=== PATIENT | female | born 1965 | race Caucasian/White ===

== ENCOUNTER 2018-05-26 18:32 | Emergency (ER) | payer SELFPAY ==
[~2018-05-26] VITALS: Wt 85.0 kg
[2018-05-26] MEDS ORDERED: KETOROLAC 30 MG INJ IM STA (23:14)
[2018-05-26] MEDS ORDERED: ALBUTEROL 0.083% (NEB) 2.5 MG/3 ML AMP HHN STA (23:23)
[2018-05-26] MEDS ORDERED: DEXAMETHASONE 10 MG/ML 1 ML INJ IM ONE (23:30)
[2018-05-27] MEDS ORDERED: ONDANSETRON (ODT) 4 MG TAB ODT STA (00:43)
[2018-05-27] MEDS ORDERED: AZITHROMYCIN 250 MG TAB PO ONE (01:00)
[2018-05-27] MEDS ORDERED: AMOXICILLIN/CLAV 875 MG TAB PO ONE (01:00)
[2018-05-27] MEDS ORDERED: ALBU8.5H8 INH (01:36)
[2018-05-27] MEDS ORDERED: ONDA4TAB14 PO (01:36)
[2018-05-27] MEDS ORDERED: AMOX1TAB9 PO (01:36)
[2018-05-27] MEDS ORDERED: AZIT250T PO (01:36)
[2018-05-27] MEDS ORDERED: ACET500C5 PO (01:46)
[2018-05-27] MEDS ORDERED: IBUP800T48 PO (01:46)
[2018-05-27 01:55] VITALS: BP 122/69; PULSE 101; RESP 19
--- NOTE | 2018-05-27 20:45 | ERD ---
ER Documentation Chief Complaint Chief Complaint FEVER, CHILLS, SOB X'S 4 DAYS HPI 53 year-old [female] coming in today with Chief Complaint: Cold symptoms History of Present Illness: Daughter brings patient in today with complaint of cold symptoms for 4 days. Associated symptoms include fever, chills, shortness of breath, wheezing, fatigue; denies any other associated symptoms. Denies sick contacts. Denies at home use of medication for symptoms. Review of systems: All systems were reviewed and are negative except for what is indicated in the history of present illness. Past Medical History: [Negative for hypertension, diabetes or other medical problems] Social History: [Patient denies tobacco, alcohol, elicit drug use] Medications: [None] Allergies: [NKDA] Social Concerns: Denies ROS All systems reviewed and are negative except as per history of present illness. Medications Home Meds Active Scripts Ibuprofen* (Motrin*) 800 Mg Tab, 800 MG PO Q6H PRN for PAIN AND OR ELEVATED TEMP, #30 TAB Prov:WESLY CALL NP 05/27/18 Acetaminophen* (Tylophen*) 500 Mg Capsule, 2 CAP PO Q6 PRN for MILD PAIN(1-3)OR ELEVATED TEMP, #20 CAP Prov:WESLY CALL NP 05/27/18 Albuterol Sulfate* (Proair HFA*) 8.5 Gm Hfa.aer.ad, 2 PUFF INH Q4H PRN for WHEEZING AND SOB, #1 INHALER Prov:WESLY CALL NP 05/27/18 Ondansetron (Ondansetron Odt) 4 Mg Tab.rapdis, 4 MG PO Q6H PRN for NAUSEA AND/OR VOMITING, #10 TAB Prov:WESLY CALL NP 05/27/18 Amoxicillin/Potassium Clav (Amox-Clav 500-125 mg Tablet) 500-125 mg Tab, 1 TAB PO BID for 7 Days, TAB Prov:WESLY CALL NP 05/27/18 Azithromycin* (Zithromax*) 250 Mg Tablet, 250 MG PO DAILY for 4 Days, TAB Prov:WESLY CALL NP 05/27/18 Allergies Allergies: Coded Allergies: No Known Allergy (Unverified , 05/26/18) PMhx/Soc Medical and Surgical Hx: pt denies Medical Hx, pt denies Surgical Hx Hx Alcohol Use: No Hx Substance Use: No Hx Tobacco Use: No Smoking Status: Never smoker Physical Exam Vitals Vital Signs Date Temp Pulse Resp B/P (MAP) Pulse Ox O2 O2 Flow FiO2 Time Delivery Rate 05/27/18 99.7 101 19 122/69 97 Room Air 01:55 (86) 05/27/18 91 22 98 21 00:01 05/26/18 98.9 117 20 145/67 96 18:49 (93) Physical Exam Const: No acute distress Head: Atraumatic Eyes: Normal Conjunctiva ENT: Normal External Ears, Nose and Mouth. Neck: Full range of motion. No meningismus. Resp: Expiratory wheezing to all lobes bilaterally. Diminished right lung sounds. Cardio: Regular rhythm, no murmurs; tachycardia at 120 Abd: Soft, non distended. Normal bowel sounds. Positive suprapubic tenderness. Skin: No petechiae or rashes Back: No midline or flank tenderness Ext: No cyanosis, or edema Neur: Awake and alert Psych: Normal Mood and Affect Results 24 hrs Laboratory Tests Test 05/26/18 21:31 Urine Color CORNELIO Urine Clarity SLIGHTLY CLOUDY Urine pH 5.0 Urine Specific [place] 1.029 Urine Ketones NEGATIVE mg/dL Urine Nitrite NEGATIVE mg/dL Urine Bilirubin NEGATIVE mg/dL Urine Urobilinogen 1+ mg/dL Urine Leukocyte Esterase 2+ Eileen/ul Urine Microscopic RBC 9 /HPF Urine Microscopic WBC 19 /HPF Urine Squamous Epithelial Cells FEW /HPF Urine Amorphous Crystals MANY /HPF Urine Bacteria FEW /HPF Urine Mucus MANY /HPF Urine Hemoglobin 1+ mg/dL Urine Glucose NEGATIVE mg/dL Urine Total Protein 2+ mg/dl Urine Test NEGATIVE Current Medications Medications Dose Sig/Jamar Start Time Status Last (Trade) Ordered Route PRN Stop Time Admin Dose Reason Admin Ketorolac 30 mg ONCE STAT 05/26/18 DC 05/27/18 Tromethamine IM 23:14 00:28 (Toradol) 05/26/18 23:16 8 mg ONCE ONCE 05/26/18 DC 05/27/18 Dexamethasone IM 23:30 00:28 (Decadron) 05/26/18 23:31 Albuterol 5 mg ONCE STAT 05/26/18 DC 05/27/18 (Proventil HHN 23:23 00:00 0.083% (Neb)) 05/26/18 23:25 875 mg ONCE ONCE 05/27/18 DC 05/27/18 Amoxicillin/ PO 01:00 01:52 Clavulanate 05/27/18 01:01 Potassium (Augmentin) 500 mg ONCE ONCE 05/27/18 DC 05/27/18 Azithromycin PO 01:00 01:52 (Zithromax) 05/27/18 01:01 Ondansetron 4 mg ONCE STAT 05/27/18 DC 05/27/18 HCl (Zofran ODT 00:43 01:52 Odt) 05/27/18 00:45 Procedures/MDM ED course includes a thorough examination and history. ED course includes influenza testing and urinalysis. Patient reassessment at 2314: Influenza negative. Urinalysis showing 2+ protein, 1+ hemoglobin, 1+ bilirubin, 2+ leukocyte esterase, 19 WBCs, 9 RBCs, positive urine bacteria; we will treat for urinary tract infection. Due to influenza B negative, and patient still with complaint of shortness of breath, will order checks x-ray to rule out pneumonia. ED course includes ketorolac for fever and pain, dexamethasone for wheezing anti-inflammatory, albuterol for shortness of breath and wheezing. Patient reassessment at 0042: Patient and daughter updated on results of x-ray showing right lower lobe pneumonia. Will order azithromycin due to patient not having comorbidities. Will also add Augmentin for pneumonia as well and UTI coverage. One-time dose of Zofran for nausea. Will order EKG due to shortness of breath to rule out cardiac etiology. First dose of antibiotics given before discharge. EKG completed at 0057: Rate/Rhythm: Tachycardia, heart rate 109 QRS, ST, T-waves: No changes consistent w/ acute ischemia Impression: No evidence of ischemia or arrhythmia Otherwise healthy patient presenting with constellation of symptoms likely representing uncomplicated wheezing secondary to pneumonia and UTI as characterized by history, physical exam findings [radiologic/lab findings]. Educated on use of antipyretics for fever control. No respiratory distress, otherwise relatively well appearing and nontoxic. Patient educated on diagnoses, prescriptions[antibiotics Augmentin and azithromycin, antibiotic Zofran, ibuprofen and acetaminophen for antipyretics, and albuterol inhaler for wheezing] follow-up care, return precautions. Strict return precautions given for worsening condition; questions answered discharge. Disposition for discharge with followup in 2-3 days with PCP/clinic. Departure Diagnosis: Primary Impression: Shortness of breath Additional Impressions: Pneumonia Pneumonia type: due to unspecified organism Laterality: right Lung location: lower lobe of lung Qualified Codes: J18.1 - Lobar pneumonia, unspecified organism UTI (urinary tract infection) Urinary tract infection type: site unspecified Hematuria presence: without hematuria Qualified Codes: N39.0 - Urinary tract infection, site not specified Condition: Stable Patient Instructions: Urinary Tract Infections in Women, Pneumonia (Adult) [facility] Usted se french hecho un examen mdico de control que le indica que no est en jonah condicin que requiera tratamiento urgente en el Departamento de Emergencia. Un estudio ms profundo y el tratamiento de almonte condicin pueden esperar sin ningn riesgo hasta que usted sea atendida/o en el consultorio de almonte mdico o jonah clnica. Es responsabilidad suya arreglar jonah good para el seguimiento del maria elena. MANEJO DE CONDICIONES NO URGENTES EN EL FUTURO 1) Si usted tiene un mdico de atencin primaria: Usted debera llamar a almonte mdico de atencin primaria antes de venir al departamento de emergencia. Despus de las horas de consultorio, almonte doctor o almonte asociado/a est disponible por telfono. El mdico o enfermero de adams en el servicio telefnico puede asesorarle por kelly medio para atender el problema, o maria elena contrario se puede programar jonah good. 2) Si usted no tiene un mdico de atencin primaria: Llame al mdico o clnica de referencia que aparece abajo jairo las horas de consultorio para hacer jonah good para que le vean. CLINICAS: [facility] [phone] [facility] [phone] [facility] [phone] [facility] [phone] [facility]. [place] [id number] [phone] [facility]. [phone] [facility] () [place] se french hecho un examen mdico de control que le indica que no est en jonah condicin que requiera tratamiento urgente en el Departamento de Emergencia. Un estudio ms profundo y el tratamiento de almonte condicin pueden esperar sin ningn riesgo hasta que usted sea atendida/o en el consultorio de almonte mdico o jonah clnica. Es responsabilidad suya arreglar jonah good para el seguimiento del maria elena. MANEJO DE CONDICIONES NO URGENTES EN EL FUTURO 1) Si usted tiene un mdico de atencin primaria: Usted debera llamar a almonte mdico de atencin primaria antes de venir al departamento de emergencia. Despus de las horas de consultorio, almonte doctor o almonte asociado/a est disponible por telfono. El mdico o enfermero de adams en el servicio telefnico puede asesorarle por kelly medio para atender el problema, o maria elena contrario se puede programar jonah good. 2) Si usted no tiene un mdico de atencin primaria: Llame al mdico o condado institucions de referencia que aparece abajo jairo las horas de consultorio para hacer jonah good para que le vean. SI USTED NO PUEDE PAGAR PARA BALDO UN MEDICO puede ir a: [facility] [id number] [place] [address] [facility] [address] [place] [address] [facility] [address] [place] [address] [facility] [address] [place] [address] Additional Instructions: Call your primary care doctor TOMORROW for an appointment during the next 2-3 days.See the doctor sooner or return here if your condition worsens before your appointment time. Return for fever uncontrolled with medication, respiratory distress, chest pain, nausea vomiting, severe abdominal pain, severe flank pain WESLY CALL NP May 27, 2018 20:45
== END 2018-05-27 02:05 | disposition home or self-care (01) ==
LOC: FTE 18:32
DX: J18.1 Lobar pneumonia, unspecified organism (principal); N39.0 Urinary tract infection, site not specified
CPT/HCPCS: 71046; 81001; 84703; 87400; 93005; 94664; 96372; 99285; J1885